=== PATIENT | male | born 1940 | race Caucasian/White ===

== ENCOUNTER 2022-05-09 18:33 | Inpatient (IN) ==
[2022-05-09] MEDS ORDERED: HEPARIN SODIUM IN D5W 25,000 UNITS/500 ML BAG IV PRN (20:15)
[2022-05-09] MEDS ORDERED: DILAUDID INJ IVP PRN (20:42)
[2022-05-09 20:58] LABS: BASOPHILS # (AUTO) 0.2 X10^3/uL (0.0-0.1); BASOPHILS % (AUTO) 2.6 % (0.2-1.0); EOSINOPHILS # (AUTO) 0.3 x10^3/uL (0.0-0.2); EOSINOPHILS % (AUTO) 5.1 % (0.9-2.9); HEMATOCRIT 31.4 % (42.0-54.0); HEMOGLOBIN 10.5 g/dL (13.5-18.0); LYMPHOCYTES # (AUTO) 1.7 X10^3/uL (1.3-2.9); LYMPHOCYTES % (AUTO) 25.4 % (21.0-51.0); MEAN CORPUSCULAR HEMOGLOBIN 28.6 pg (27.0-34.0); MEAN CORPUSCULAR HGB CONC 33.4 g/dL (33.0-35.0); MEAN CORPUSCULAR VOLUME 85.7 fL (80.0-100.0); MEAN PLATELET VOLUME 7.7 fL (7.4-11.0); MONOCYTES # (AUTO) 0.8 x10^3/uL (0.3-0.8); MONOCYTES % (AUTO) 11.6 % (0.0-13.0); NEUTROPHILS # (AUTO) 3.6 x10^3/uL (2.2-4.8); NEUTROPHILS % (AUTO) 55.3 % (42.0-75.0); RED BLOOD COUNT 3.67 X10^6/uL (4.7-6.0); RED CELL DISTRIBUTION WIDTH 14.8 % (11.6-16.5); WHITE BLOOD COUNT 6.6 X10^3/uL (3.6-10.0)
[2022-05-09] MEDS ORDERED: HEPARIN SODIUM INJ 5000 UNITS IVP ONE (21:01)
[2022-05-09 21:07] LABS: INR 1.18 (0.8-1.3)
[2022-05-09 21:12] LABS: ALANINE AMINOTRANSFERASE 22 Units/L (12-78); ALBUMIN 2.9 g/dL (3.4-5.0); ALKALINE PHOSPHATASE 90 Units/L (46-116); ASPARTATE AMINO TRANSFERASE 31 Units/L (15-37); BLOOD UREA NITROGEN 11 mg/dL (7-18); CALCIUM 8.2 mg/dL (8.5-10.1); CARBON DIOXIDE 27.4 mmol/L (21-32); CHLORIDE 104 mmol/L (98-107); COR CA(FOR HYPOALB) 9.1 mg/dL (8.5-10.1); CREATININE 0.95 mg/dL (0.70-1.30); SODIUM 139 mmol/L (136-145); TOTAL PROTEIN 6.3 g/dL (6.4-8.2); eGFR NON BLACK RACES > 60 (>60)
[2022-05-09] MEDS: CARDURA PO SCH (21:51)
[2022-05-09] MEDS: RESTORIL CAP 15 MG PO PRN (21:51)
[2022-05-09] MEDS: SINGULAIR TAB 10 MG PO SCH (21:51)
[2022-05-09] MEDS: LIPITOR TAB 80 MG PO SCH (22:08)
[2022-05-09] MEDS: ZETIA TAB 10 MG PO SCH (22:08)
[2022-05-09 22:58] VITALS: BMI 28.6
[2022-05-10] MEDS ORDERED: TOPROL XL PO ONE (08:22)
[2022-05-10] MEDS: PROTONIX TAB 40 MG PO SCH (08:23)
[2022-05-10] MEDS: TOPROL XL PO SCH (08:23)
[2022-05-10] MEDS: CARDURA PO SCH ×2 (08:23→20:09)
[2022-05-10] MEDS: ASPIRIN EC 81 MG PO SCH (08:23)
[2022-05-10] MEDS ORDERED: LIPITOR TAB 80 MG PO SCH (09:00)
[2022-05-10] MEDS ORDERED: ZETIA TAB 10 MG PO SCH (09:00)
[2022-05-10] MEDS ORDERED: ACTIVASE CATHFLO 12 MG in NS 250 ML IV 228 ML IV SCH (09:30)
[2022-05-10] MEDS ORDERED: NS 100 ML IV 100 ML ONE ×2 (10:06→11:11)
[2022-05-10] MEDS ORDERED: LR 1,000 ML IV 1,000 ML IV ONE (10:06)
[2022-05-10] MEDS ORDERED: NS 500 ML IV 500 ML IV ONE (10:06)
[2022-05-10] MEDS ORDERED: ANCEF VIAL 1 GRAM ONE (10:08)
[2022-05-10] MEDS ORDERED: HEPARIN SODIUM IN D5W 100,000 UNITS/2,000 ML BAG ONE (10:09)
[2022-05-10] MEDS ORDERED: ACTIVASE CATHFLO ONE (10:10)
--- NOTE | 2022-05-10 10:14 | RAD ---
HISTORYPRE-OP VASCULARSTUDYCHEST, 1 VIEWCOMPARISONNoneTECHNIQUEAP view of the chestFINDINGSStatus post median sternotomy and CABG. Cardiac silhouette is borderline in size. Mediastinal contours are within normal limits. There are bilateral hazy and interstitial pulmonary opacities. Blunting of the costophrenic sulci. No pneumothorax. Soft tissue attenuation limits evaluation.IMPRESSIONBilateral hazy and interstitial pulmonary opacities may represent pneumonia or edema in the acute setting. Differential includes chronic fibrosis. Suspect small pleural effusions.Electronically signed by: Dev Shaw (May 10, 2022 10:12:20)
[2022-05-10] MEDS ORDERED: MARCAINE/EPINEPHRINE ONE (10:20)
[2022-05-10] MEDS ORDERED: DUONEB 0.5 MG/3 MG (3 mL) NEB ONE (10:30)
[2022-05-10] MEDS ORDERED: DIPRIVAN VIAL 40 ML ONE (10:31)
[2022-05-10] MEDS ORDERED: ZOFRAN INJ 4 MG VIAL ONE (10:31)
[2022-05-10] MEDS ORDERED: PEPCID 20 MG VIAL ONE (10:31)
[2022-05-10] MEDS ORDERED: VERSED ONE (10:32)
[2022-05-10] MEDS ORDERED: FENTANYL VIAL INJ 100 mcg ONE (10:32)
[2022-05-10] MEDS ORDERED: XYLOCAINE 2 % (PLAIN) ONE (10:37)
[2022-05-10] MEDS ORDERED: PRECEDEX INJ VIAL IVP ONE (10:42)
[2022-05-10] MEDS ORDERED: KETAMINE HCL ONE (10:42)
[2022-05-10] MEDS ORDERED: EPHEDRINE SULFATE INJ ONE (11:06)
[2022-05-10] MEDS ORDERED: NEO-SYNEPHRINE INJ ONE (11:06)
[2022-05-10] MEDS ORDERED: HEPARIN SODIUM INJ 5000 UNITS ONE (11:17)
[2022-05-10] MEDS ORDERED: LASIX IVP ONE (11:33)
--- NOTE | 2022-05-10 13:18 | OR.IMMED ---
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 Final Diagnosis: as above
[2022-05-10] MEDS ORDERED: XARELTO PO ONE (13:28)
[2022-05-10] MEDS: XARELTO PO SCH ×2 (13:29→20:08)
[2022-05-10] MEDS: RESTORIL CAP 15 MG PO PRN (20:07)
[2022-05-10] MEDS: LIPITOR TAB 80 MG PO SCH (20:08)
[2022-05-10] MEDS: ZETIA TAB 10 MG PO SCH (20:09)
[2022-05-10] MEDS: SINGULAIR TAB 10 MG PO SCH (20:10)
--- NOTE | 2022-05-10 21:21 | DR.OPNOTE ---
OP NOTE Pre-Op Diagnosis: DVT of left femoral vein Post-Op Diagnosis: occlusion of left common femoral vein Procedure Date Date Of Procedure: 05/10/22 Procedure: PROCEDURE : Left iliac vein venogram, left femoral vein venogram , intravascular ultrasound of the left femoral vein and left iliac vein, stenting of the left common femoral vein near total occlusion NARRATIVE : The patient was taken to the operative suite and placed in the right lateral position. The left popliteal area was prepped and draped in sterile fashion. The patient was given intravenous sedation which was supervised by myself. Time out for the procedure obtained . Ultrasound used to identify the left popliteal vein and it was easily compressible. The skin overlying it was infiltrated with a 0. 5% Marcaine with epinephrine. Ultrasound was used to guide puncture of the left femoral vein and a 0. 012 inch guide wire placed without difficulty. Incision made over the guide wire with a number 11 knife blade and a micro sheath placed over the wire into the left femoral vein. The small wire exchanged for a 0. 035 inch Advantage glide wire and the micro sheath exchanged for a 9 Fr vascular sheath . Patient was administered 3,000 units of intravenous Heparin. Venogram carried out showing a normal femoral vein. At the common femoral vein just below the previously placed stents there was near complete total occlusion but with filling of the iliac vein and in side the stent. At this point the intravascular ultrasound was placed over the 0. 035 inch glide wire which had been used to traverse the near total occlusion. Intravascular ultrasound confirmed the near complete occlusion of the common femoral vein with no evidence of thrombosis. The 9 Fr sheath was exchanged for a 10 Fr vascular sheath .Over the wire weplaced a 16 mm by 90 mm Venous Wall stent with overlap into the distal most external iliac vein stent and this balloon dilated with a 16 mm by 60 mm esophageal balloon. Dilation was difficult but was carried out. Repeat intravascular ultrasound showed resolution of the near complete and again no thrombosis. Wire was removed from the popliteal sheath. The sheath left in place and the patient taken back to the ICU. Type of Anesthesia: Local (0.5% Marcaine) Anesthesia Comment: plus MAC Findings: occlusion of left femoral vein probably at site of venotomy and removal of foreign body Specimen/Pathology: none Type of Fluids Used:: Lactated Ringers Urine output: 300cc Hardware: stent placed left common femoral vein Complications:: none Needle/Sponge Count:: correct Disposition/Condition: Pt. tolerated procedure without difficulty. Taken back to the ICU in stable condition.
[2022-05-11 05:39] LABS: BASOPHILS # (AUTO) 0.1 X10^3/uL (0.0-0.1); BASOPHILS % (AUTO) 1.3 % (0.2-1.0); EOSINOPHILS # (AUTO) 0.2 x10^3/uL (0.0-0.2); EOSINOPHILS % (AUTO) 4.1 % (0.9-2.9); HEMATOCRIT 26.4 % (42.0-54.0); LYMPHOCYTES # (AUTO) 1.4 X10^3/uL (1.3-2.9); LYMPHOCYTES % (AUTO) 22.6 % (21.0-51.0); MEAN CORPUSCULAR HEMOGLOBIN 28.8 pg (27.0-34.0); MEAN CORPUSCULAR HGB CONC 33.9 g/dL (33.0-35.0); MEAN CORPUSCULAR VOLUME 84.8 fL (80.0-100.0); MEAN PLATELET VOLUME 7.7 fL (7.4-11.0); MONOCYTES % (AUTO) 16.4 % (0.0-13.0); NEUTROPHILS # (AUTO) 3.4 x10^3/uL (2.2-4.8); NEUTROPHILS % (AUTO) 55.6 % (42.0-75.0); RED BLOOD COUNT 3.11 X10^6/uL (4.7-6.0); RED CELL DISTRIBUTION WIDTH 14.9 % (11.6-16.5); WHITE BLOOD COUNT 6.1 X10^3/uL (3.6-10.0)
[2022-05-11 05:51] LABS: ALANINE AMINOTRANSFERASE 15 Units/L (12-78); ALBUMIN 2.2 g/dL (3.4-5.0); ALKALINE PHOSPHATASE 79 Units/L (46-116); ASPARTATE AMINO TRANSFERASE 24 Units/L (15-37); BLOOD UREA NITROGEN 9 mg/dL (7-18); CALCIUM 7.5 mg/dL (8.5-10.1); CARBON DIOXIDE 30.2 mmol/L (21-32); CHLORIDE 103 mmol/L (98-107); COR CA(FOR HYPOALB) 8.9 mg/dL (8.5-10.1); COR NA(FOR HYPERGLY) 137 mmol/L (136-145); CREATININE 0.89 mg/dL (0.70-1.30); SODIUM 136 mmol/L (136-145); TOTAL PROTEIN 5.3 g/dL (6.4-8.2); eGFR NON BLACK RACES > 60 (>60)
[2022-05-11] MEDS ORDERED: TOPROL XL PO ONE (09:08)
[2022-05-11] MEDS: CARDURA PO SCH (09:11)
[2022-05-11] MEDS: XARELTO PO SCH (09:11)
[2022-05-11] MEDS: TOPROL XL PO SCH (09:12)
[2022-05-11] MEDS: ASPIRIN EC 81 MG PO SCH (09:12)
[2022-05-11] MEDS: PROTONIX TAB 40 MG PO SCH (09:12)
--- NOTE | 2022-05-11 10:06 | W.DIS.FURT ---
Summary of Discharge Discharge Summary of Date Date of Exam: 05/11/22 Admission Date Date of Admission: 05/09/22 Admission Diagnosis Hospital Course: 81 year old male who presented to my office with significant increased swelling of the upper left thigh after having had stenting of the left iliac vein by another provider several weeks prior. 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 Patient was admitted and placed on a Heparin drip. Previously he had been on Plavix and aspirin. The next morning he was taken to the operating Suite where venogram was carried out by of the left Popliteal vein showing no thrombosis of the femoral vein or the iliac vein however there was near total occlusion of the proximal common femoral vein, probably from venotomy at the time of the procedure to remove a foreign body. This was stented with overlap into the previously placed iliac vein stents of the left leg and the patient has done well. He will be discharged home on his usual medications plus Xarelto 2. 5 mg BID and daily aspirin 87. I will discontinue the Plavix. He will follow up with me in one week. Vital Signs: Vital Signs (72 hours) 05/09/22 19:45 05/09/22 20:00 05/09/22 19:40 Temperature 97.6 F 97.6 F Pulse Rate 57 L 61 Respiratory Rate 30 H 27 H Blood Pressure 177/74 172/73 O2 Sat by Pulse Oximetry 96 100 Oxygen Delivery Method Room Air Room Air Room Air Oxygen Flow Rate FIO2% 05/09/22 21:00 05/09/22 22:00 05/09/22 23:00 Temperature Pulse Rate 68 75 68 Respiratory Rate 27 H 30 H 29 H Blood Pressure 169/68 161/67 125/58 O2 Sat by Pulse Oximetry 97 95 98 Oxygen Delivery Method Room Air Room Air Nasal Cannula Oxygen Flow Rate 2 FIO2% 05/10/22 00:00 05/10/22 01:00 05/10/22 02:00 Temperature 97.6 F Pulse Rate 59 L 58 L 61 Respiratory Rate 29 H 28 H 27 H Blood Pressure 117/53 120/58 130/57 O2 Sat by Pulse Oximetry 93 L 92 L 95 Oxygen Delivery Method Nasal Cannula Nasal Cannula Nasal Cannula Oxygen Flow Rate 2 2 2 FIO2% 05/10/22 03:00 05/09/22 21:00 05/10/22 01:00 Temperature Pulse Rate 64 Respiratory Rate 24 Blood Pressure 115/61 O2 Sat by Pulse Oximetry 98 Oxygen Delivery Method Nasal Cannula Room Air Nasal Cannula Oxygen Flow Rate 2 2 FIO2% 28 05/10/22 04:00 05/10/22 05:00 05/10/22 06:00 Temperature 97.7 F Pulse Rate 57 L 57 L 61 Respiratory Rate 27 H 23 29 H Blood Pressure 103/50 120/56 151/63 O2 Sat by Pulse Oximetry 93 L 92 L 95 Oxygen Delivery Method Nasal Cannula Nasal Cannula Nasal Cannula Oxygen Flow Rate 2 2 2 FIO2% 05/10/22 06:53 05/09/22 19:47 05/09/22 19:55 Temperature Pulse Rate 61 Respiratory Rate 34 H Blood Pressure 189/82 O2 Sat by Pulse Oximetry Oxygen Delivery Method Room Air Oxygen Flow Rate FIO2% 05/09/22 19:55 05/09/22 19:58 05/09/22 19:58 Temperature Pulse Rate 59 L 54 L Respiratory Rate 36 H 31 H Blood Pressure 177/74 O2 Sat by Pulse Oximetry 97 96 Oxygen Delivery Method Oxygen Flow Rate FIO2% 05/09/22 20:00 05/09/22 20:00 05/09/22 20:15 Temperature Pulse Rate 74 63 Respiratory Rate 55 H 39 H Blood Pressure 172/73 O2 Sat by Pulse Oximetry 96 99 Oxygen Delivery Method Oxygen Flow Rate FIO2% 05/09/22 20:30 05/09/22 20:31 05/09/22 20:31 Temperature Pulse Rate 68 69 Respiratory Rate 22 44 H Blood Pressure 183/79 O2 Sat by Pulse Oximetry 97 97 Oxygen Delivery Method Oxygen Flow Rate FIO2% 05/09/22 20:45 05/09/22 21:00 05/09/22 21:01 Temperature Pulse Rate 69 69 Respiratory Rate 30 H 34 H Blood Pressure 169/68 O2 Sat by Pulse Oximetry 94 L 92 L Oxygen Delivery Method Oxygen Flow Rate FIO2% 05/09/22 21:01 05/09/22 21:15 05/09/22 21:30 Temperature Pulse Rate 70 71 74 Respiratory Rate 36 H 37 H 37 H Blood Pressure O2 Sat by Pulse Oximetry 92 L 94 L 93 L Oxygen Delivery Method Oxygen Flow Rate FIO2% 05/09/22 21:31 05/09/22 21:31 05/09/22 21:45 Temperature Pulse Rate 68 70 Respiratory Rate 29 H 36 H Blood Pressure 148/65 O2 Sat by Pulse Oximetry 93 L 94 L Oxygen Delivery Method Oxygen Flow Rate FIO2% 05/09/22 22:00 05/09/22 22:00 05/09/22 22:15 Temperature Pulse Rate 77 66 Respiratory Rate 29 H 32 H Blood Pressure 161/67 O2 Sat by Pulse Oximetry 91 L 94 L Oxygen Delivery Method Oxygen Flow Rate FIO2% 05/09/22 22:30 05/09/22 22:45 05/09/22 23:00 Temperature Pulse Rate 62 65 59 L Respiratory Rate 32 H 26 H 28 H Blood Pressure O2 Sat by Pulse Oximetry 95 96 95 Oxygen Delivery Method Oxygen Flow Rate FIO2% 05/09/22 23:01 05/09/22 23:01 05/09/22 23:15 Temperature Pulse Rate 63 58 L Respiratory Rate 30 H 28 H Blood Pressure 125/58 O2 Sat by Pulse Oximetry 96 98 Oxygen Delivery Method Oxygen Flow Rate FIO2% 05/09/22 23:30 05/09/22 23:45 05/10/22 00:00 Temperature Pulse Rate 58 L 62 61 Respiratory Rate 25 H 28 H 29 H Blood Pressure O2 Sat by Pulse Oximetry 97 94 L 94 L Oxygen Delivery Method Oxygen Flow Rate FIO2% 05/10/22 00:01 05/10/22 00:01 05/10/22 00:15 Temperature Pulse Rate 60 63 Respiratory Rate 31 H 27 H Blood Pressure 117/53 O2 Sat by Pulse Oximetry 92 L 96 Oxygen Delivery Method Oxygen Flow Rate FIO2% 05/10/22 00:30 05/10/22 00:45 05/10/22 01:00 Temperature Pulse Rate 60 59 L Respiratory Rate 28 H 30 H Blood Pressure 120/58 O2 Sat by Pulse Oximetry 92 L 97 Oxygen Delivery Method Oxygen Flow Rate FIO2% 05/10/22 01:00 05/10/22 01:15 05/10/22 01:30 Temperature Pulse Rate 57 L 65 57 L Respiratory Rate 24 33 H 26 H Blood Pressure O2 Sat by Pulse Oximetry 94 L 95 91 L Oxygen Delivery Method Oxygen Flow Rate FIO2% 05/10/22 01:45 05/10/22 07:00 05/10/22 08:00 Temperature 98.1 F Pulse Rate 56 L 60 58 L Respiratory Rate 26 H 25 H 25 H Blood Pressure 129/60 149/69 O2 Sat by Pulse Oximetry 92 L 93 L 90 L Oxygen Delivery Method Nasal Cannula Nasal Cannula Oxygen Flow Rate 2 2 FIO2% 05/10/22 02:00 05/10/22 02:01 05/10/22 02:01 Temperature Pulse Rate 59 L 60 Respiratory Rate 26 H 29 H Blood Pressure 130/57 O2 Sat by Pulse Oximetry 93 L 94 L Oxygen Delivery Method Oxygen Flow Rate FIO2% 05/10/22 02:15 05/10/22 02:30 05/10/22 02:45 Temperature Pulse Rate 63 61 63 Respiratory Rate 32 H 32 H 14 Blood Pressure O2 Sat by Pulse Oximetry 95 94 L 99 Oxygen Delivery Method Oxygen Flow Rate FIO2% 05/10/22 03:01 05/10/22 03:03 05/10/22 03:03 Temperature Pulse Rate 62 62 Respiratory Rate 32 H 41 H Blood Pressure 115/61 O2 Sat by Pulse Oximetry 98 96 Oxygen Delivery Method Oxygen Flow Rate FIO2% 05/10/22 03:15 05/10/22 03:30 05/10/22 03:45 Temperature Pulse Rate 63 60 58 L Respiratory Rate 30 H 30 H 29 H Blood Pressure O2 Sat by Pulse Oximetry 92 L 93 L 95 Oxygen Delivery Method Oxygen Flow Rate FIO2% 05/10/22 04:00 05/10/22 04:01 05/10/22 04:01 Temperature Pulse Rate 60 60 Respiratory Rate 29 H 29 H Blood Pressure 103/50 O2 Sat by Pulse Oximetry 93 L 93 L Oxygen Delivery Method Oxygen Flow Rate FIO2% 05/10/22 04:15 05/10/22 04:31 05/10/22 04:45 Temperature Pulse Rate 59 L 59 L 59 L Respiratory Rate 26 H 27 H 25 H Blood Pressure O2 Sat by Pulse Oximetry 98 94 L 93 L Oxygen Delivery Method Oxygen Flow Rate FIO2% 05/10/22 04:59 05/10/22 05:00 05/10/22 05:02 Temperature Pulse Rate 58 L 57 L Respiratory Rate 23 25 H Blood Pressure 120/56 O2 Sat by Pulse Oximetry 93 L 92 L Oxygen Delivery Method Oxygen Flow Rate FIO2% 05/10/22 05:15 05/10/22 05:30 05/10/22 05:45 Temperature Pulse Rate 59 L 72 62 Respiratory Rate 26 H 39 H 29 H Blood Pressure O2 Sat by Pulse Oximetry 92 L 94 L 95 Oxygen Delivery Method Oxygen Flow Rate FIO2% 05/10/22 06:00 05/10/22 06:01 05/10/22 06:01 Temperature Pulse Rate 61 61 Respiratory Rate 28 H 29 H Blood Pressure 151/63 O2 Sat by Pulse Oximetry 93 L 92 L Oxygen Delivery Method Oxygen Flow Rate FIO2% 05/10/22 06:01 05/10/22 06:15 05/10/22 06:30 Temperature Pulse Rate 59 L 57 L Respiratory Rate 27 H 25 H Blood Pressure 151/63 O2 Sat by Pulse Oximetry 93 L 91 L Oxygen Delivery Method Oxygen Flow Rate FIO2% 05/10/22 06:45 05/10/22 07:00 05/10/22 07:01 Temperature Pulse Rate 58 L 59 L Respiratory Rate 24 26 H Blood Pressure 129/60 O2 Sat by Pulse Oximetry 93 L 90 L Oxygen Delivery Method Oxygen Flow Rate FIO2% 05/10/22 07:01 05/10/22 07:15 05/10/22 07:30 Temperature Pulse Rate 60 66 58 L Respiratory Rate 25 H 38 H 24 Blood Pressure O2 Sat by Pulse Oximetry 93 L 96 92 L Oxygen Delivery Method Oxygen Flow Rate FIO2% 05/10/22 07:45 05/10/22 08:00 05/10/22 08:00 Temperature Pulse Rate 58 L 58 L Respiratory Rate 25 H 25 H Blood Pressure 149/69 O2 Sat by Pulse Oximetry 93 L 90 L Oxygen Delivery Method Oxygen Flow Rate FIO2% 05/10/22 08:15 05/10/22 08:30 05/10/22 08:45 Temperature Pulse Rate 58 L 68 60 Respiratory Rate 26 H 41 H 26 H Blood Pressure O2 Sat by Pulse Oximetry 91 L 94 L 97 Oxygen Delivery Method Oxygen Flow Rate FIO2% 05/10/22 09:00 05/10/22 09:00 05/10/22 09:15 Temperature Pulse Rate 63 59 L Respiratory Rate 30 H 24 Blood Pressure 161/72 O2 Sat by Pulse Oximetry 96 99 Oxygen Delivery Method Oxygen Flow Rate FIO2% 05/10/22 09:30 05/10/22 09:35 05/10/22 12:05 Temperature Pulse Rate 63 61 Respiratory Rate 31 H 27 H Blood Pressure 111/57 O2 Sat by Pulse Oximetry 94 L 95 Oxygen Delivery Method Oxygen Flow Rate FIO2% 05/10/22 12:08 05/10/22 12:10 05/10/22 12:10 Temperature Pulse Rate 59 L 58 L Respiratory Rate Blood Pressure 109/53 O2 Sat by Pulse Oximetry 93 L 92 L Oxygen Delivery Method Oxygen Flow Rate FIO2% 05/10/22 12:15 05/10/22 12:15 05/10/22 12:20 Temperature Pulse Rate 57 L 55 L Respiratory Rate 23 22 Blood Pressure 105/53 O2 Sat by Pulse Oximetry 91 L 91 L Oxygen Delivery Method Oxygen Flow Rate FIO2% 05/10/22 12:20 05/10/22 12:25 05/10/22 12:25 Temperature Pulse Rate 55 L Respiratory Rate 19 Blood Pressure 103/53 105/54 O2 Sat by Pulse Oximetry 91 L Oxygen Delivery Method Oxygen Flow Rate FIO2% 05/10/22 12:30 05/10/22 12:30 05/10/22 12:35 Temperature Pulse Rate 54 L 57 L Respiratory Rate 19 20 Blood Pressure 109/54 O2 Sat by Pulse Oximetry 91 L 95 Oxygen Delivery Method Oxygen Flow Rate FIO2% 05/10/22 12:35 05/10/22 12:40 05/10/22 12:40 Temperature Pulse Rate 53 L Respiratory Rate 18 Blood Pressure 107/55 114/56 O2 Sat by Pulse Oximetry 96 Oxygen Delivery Method Oxygen Flow Rate FIO2% 05/10/22 12:45 05/10/22 12:45 05/10/22 12:50 Temperature Pulse Rate 51 L Respiratory Rate 22 Blood Pressure 110/55 110/57 O2 Sat by Pulse Oximetry 94 L Oxygen Delivery Method Oxygen Flow Rate FIO2% 05/10/22 12:50 05/10/22 12:55 05/10/22 12:55 Temperature Pulse Rate 53 L 52 L Respiratory Rate 20 18 Blood Pressure 115/58 O2 Sat by Pulse Oximetry 95 94 L Oxygen Delivery Method Oxygen Flow Rate FIO2% 05/10/22 13:00 05/10/22 13:00 05/10/22 13:05 Temperature Pulse Rate 55 L Respiratory Rate 22 Blood Pressure 114/57 116/58 O2 Sat by Pulse Oximetry 94 L Oxygen Delivery Method Oxygen Flow Rate FIO2% 05/10/22 13:05 05/10/22 13:10 05/10/22 13:10 Temperature Pulse Rate 52 L 53 L Respiratory Rate 20 19 Blood Pressure 112/54 O2 Sat by Pulse Oximetry 94 L 96 Oxygen Delivery Method Oxygen Flow Rate FIO2% 05/10/22 13:15 05/10/22 13:15 05/10/22 13:20 Temperature Pulse Rate 57 L Respiratory Rate 21 Blood Pressure 114/56 112/54 O2 Sat by Pulse Oximetry 96 Oxygen Delivery Method Oxygen Flow Rate FIO2% 05/10/22 13:20 05/10/22 13:25 05/10/22 13:25 Temperature Pulse Rate 55 L 53 L Respiratory Rate 22 18 Blood Pressure 117/55 O2 Sat by Pulse Oximetry 95 94 L Oxygen Delivery Method Oxygen Flow Rate FIO2% 05/10/22 13:30 05/10/22 13:30 05/10/22 13:35 Temperature Pulse Rate 52 L Respiratory Rate 18 Blood Pressure 113/57 125/58 O2 Sat by Pulse Oximetry 95 Oxygen Delivery Method Oxygen Flow Rate FIO2% 05/10/22 13:35 05/10/22 15:00 05/10/22 13:45 Temperature 98.2 F 98.2 F Pulse Rate 52 L 56 L Respiratory Rate 19 33 H Blood Pressure O2 Sat by Pulse Oximetry 95 96 Oxygen Delivery Method Oxygen Flow Rate FIO2% 05/10/22 14:00 05/10/22 14:00 05/10/22 14:15 Temperature Pulse Rate 54 L 54 L Respiratory Rate 29 H 29 H Blood Pressure 122/58 O2 Sat by Pulse Oximetry 99 100 Oxygen Delivery Method Oxygen Flow Rate FIO2% 05/10/22 14:30 05/10/22 14:31 05/10/22 14:31 Temperature Pulse Rate 55 L 54 L Respiratory Rate 44 H 30 H Blood Pressure 119/58 O2 Sat by Pulse Oximetry 100 99 Oxygen Delivery Method Oxygen Flow Rate FIO2% 05/10/22 14:45 05/10/22 15:00 05/10/22 15:00 Temperature Pulse Rate 57 L 55 L Respiratory Rate 27 H 21 Blood Pressure 108/75 O2 Sat by Pulse Oximetry 95 99 Oxygen Delivery Method Oxygen Flow Rate FIO2% 05/10/22 15:15 05/10/22 15:30 05/10/22 15:30 Temperature Pulse Rate 50 L 58 L Respiratory Rate 37 H 30 H Blood Pressure 118/58 O2 Sat by Pulse Oximetry 99 96 Oxygen Delivery Method Oxygen Flow Rate FIO2% 05/10/22 15:45 05/10/22 16:00 05/10/22 16:15 Temperature Pulse Rate 58 L 60 57 L Respiratory Rate 42 H 46 H 33 H Blood Pressure O2 Sat by Pulse Oximetry 99 98 100 Oxygen Delivery Method Oxygen Flow Rate FIO2% 05/10/22 16:30 05/10/22 16:30 05/10/22 16:45 Temperature 97.4 F L Pulse Rate 56 L 61 Respiratory Rate 24 36 H Blood Pressure 120/58 O2 Sat by Pulse Oximetry 100 98 Oxygen Delivery Method Oxygen Flow Rate FIO2% 05/10/22 17:00 05/10/22 17:01 05/10/22 17:01 Temperature Pulse Rate 58 L 57 L Respiratory Rate 26 H 30 H Blood Pressure 144/63 O2 Sat by Pulse Oximetry 98 97 Oxygen Delivery Method Oxygen Flow Rate FIO2% 05/10/22 17:15 05/10/22 17:30 05/10/22 17:45 Temperature Pulse Rate 56 L 57 L 56 L Respiratory Rate 33 H 27 H 33 H Blood Pressure O2 Sat by Pulse Oximetry 98 95 100 Oxygen Delivery Method Oxygen Flow Rate FIO2% 05/10/22 18:00 05/10/22 18:01 05/10/22 18:01 Temperature Pulse Rate 56 L 58 L Respiratory Rate 35 H 36 H Blood Pressure 161/70 O2 Sat by Pulse Oximetry 98 96 Oxygen Delivery Method Oxygen Flow Rate FIO2% 05/10/22 19:00 05/10/22 19:00 05/10/22 20:00 Temperature 97.8 F Pulse Rate 57 L 66 Respiratory Rate 25 H 24 Blood Pressure 125/56 153/67 O2 Sat by Pulse Oximetry 100 95 Oxygen Delivery Method Nasal Cannula Oxygen Flow Rate 2 FIO2% 05/10/22 22:00 05/10/22 20:15 05/10/22 21:00 Temperature Pulse Rate 64 61 Respiratory Rate 27 H 28 H Blood Pressure 131/59 129/58 O2 Sat by Pulse Oximetry 97 95 Oxygen Delivery Method Nasal Cannula Oxygen Flow Rate 2 FIO2% 28 05/10/22 23:00 05/11/22 00:00 05/11/22 01:00 Temperature 98.6 F Pulse Rate 65 66 72 Respiratory Rate 23 26 H 25 H Blood Pressure 107/54 129/60 122/58 O2 Sat by Pulse Oximetry 99 97 94 L Oxygen Delivery Method Oxygen Flow Rate FIO2% 05/11/22 02:00 05/11/22 03:00 05/11/22 04:00 Temperature 98.7 F Pulse Rate 63 60 65 Respiratory Rate 27 H 24 24 Blood Pressure 119/56 109/51 120/57 O2 Sat by Pulse Oximetry 95 97 96 Oxygen Delivery Method Oxygen Flow Rate FIO2% 05/11/22 05:00 05/11/22 06:00 05/10/22 22:30 Temperature Pulse Rate 60 64 67 Respiratory Rate 26 H 17 34 H Blood Pressure 114/58 111/54 O2 Sat by Pulse Oximetry 91 L 98 92 L Oxygen Delivery Method Oxygen Flow Rate FIO2% 05/10/22 22:45 05/10/22 23:00 05/10/22 23:03 Temperature Pulse Rate 66 68 Respiratory Rate 33 H 38 H Blood Pressure 107/54 O2 Sat by Pulse Oximetry 90 L 92 L Oxygen Delivery Method Oxygen Flow Rate FIO2% 05/10/22 23:03 05/10/22 23:15 05/10/22 23:30 Temperature Pulse Rate 66 68 60 Respiratory Rate 31 H 37 H 26 H Blood Pressure O2 Sat by Pulse Oximetry 90 L 95 91 L Oxygen Delivery Method Oxygen Flow Rate FIO2% 05/10/22 23:45 05/11/22 00:00 05/11/22 00:01 Temperature Pulse Rate 58 L 64 66 Respiratory Rate 26 H 29 H 32 H Blood Pressure O2 Sat by Pulse Oximetry 98 99 98 Oxygen Delivery Method Oxygen Flow Rate FIO2% 05/11/22 00:01 05/11/22 00:15 05/11/22 00:30 Temperature Pulse Rate 66 62 Respiratory Rate 31 H 29 H Blood Pressure 129/60 O2 Sat by Pulse Oximetry 95 92 L Oxygen Delivery Method Oxygen Flow Rate FIO2% 05/11/22 00:45 05/11/22 01:00 05/11/22 01:00 Temperature Pulse Rate 59 L 61 Respiratory Rate 26 H 27 H Blood Pressure 122/58 O2 Sat by Pulse Oximetry 90 L 91 L Oxygen Delivery Method Oxygen Flow Rate FIO2% 05/11/22 01:15 05/11/22 01:30 05/11/22 01:45 Temperature Pulse Rate 61 67 63 Respiratory Rate 28 H 38 H 36 H Blood Pressure O2 Sat by Pulse Oximetry 90 L 90 L 93 L Oxygen Delivery Method Oxygen Flow Rate FIO2% 05/11/22 02:00 05/11/22 02:00 05/11/22 02:15 Temperature Pulse Rate 63 65 Respiratory Rate 30 H 28 H Blood Pressure 119/56 O2 Sat by Pulse Oximetry 96 98 Oxygen Delivery Method Oxygen Flow Rate FIO2% 05/11/22 02:30 05/11/22 02:45 05/11/22 03:00 Temperature Pulse Rate 63 67 Respiratory Rate 29 H 29 H Blood Pressure 109/51 O2 Sat by Pulse Oximetry 93 L 94 L Oxygen Delivery Method Oxygen Flow Rate FIO2% 05/11/22 03:00 05/11/22 03:15 05/11/22 03:30 Temperature Pulse Rate 66 63 61 Respiratory Rate 27 H 27 H 25 H Blood Pressure O2 Sat by Pulse Oximetry 92 L 90 L 91 L Oxygen Delivery Method Oxygen Flow Rate FIO2% 05/11/22 03:45 05/11/22 04:00 05/11/22 04:00 Temperature Pulse Rate 62 67 Respiratory Rate 25 H 28 H Blood Pressure 120/57 O2 Sat by Pulse Oximetry 90 L 95 Oxygen Delivery Method Oxygen Flow Rate FIO2% 05/11/22 04:15 05/11/22 04:30 05/11/22 04:45 Temperature Pulse Rate 69 63 62 Respiratory Rate 32 H 31 H 28 H Blood Pressure O2 Sat by Pulse Oximetry 94 L 96 92 L Oxygen Delivery Method Oxygen Flow Rate FIO2% 05/11/22 05:00 05/11/22 05:00 05/11/22 05:15 Temperature Pulse Rate 62 64 Respiratory Rate 50 H 35 H Blood Pressure 114/58 O2 Sat by Pulse Oximetry 92 L 94 L Oxygen Delivery Method Oxygen Flow Rate FIO2% 05/11/22 05:30 05/11/22 05:45 05/11/22 06:00 Temperature Pulse Rate 62 67 Respiratory Rate 29 H 32 H Blood Pressure 111/55 O2 Sat by Pulse Oximetry 94 L 99 Oxygen Delivery Method Oxygen Flow Rate FIO2% 05/11/22 06:00 05/11/22 06:15 05/11/22 06:30 Temperature Pulse Rate 61 60 61 Respiratory Rate 24 Blood Pressure O2 Sat by Pulse Oximetry 92 L 95 93 L Oxygen Delivery Method Oxygen Flow Rate FIO2% 05/11/22 06:45 05/11/22 07:00 05/11/22 07:00 Temperature Pulse Rate 66 60 Respiratory Rate Blood Pressure 116/58 O2 Sat by Pulse Oximetry 94 L 93 L Oxygen Delivery Method Oxygen Flow Rate FIO2% 05/11/22 07:15 05/11/22 07:30 05/11/22 07:45 Temperature Pulse Rate 57 L 59 L 62 Respiratory Rate Blood Pressure O2 Sat by Pulse Oximetry 96 96 97 Oxygen Delivery Method Oxygen Flow Rate FIO2% 05/11/22 08:00 05/11/22 08:15 05/11/22 08:30 Temperature Pulse Rate 71 66 67 Respiratory Rate Blood Pressure O2 Sat by Pulse Oximetry 94 L 97 96 Oxygen Delivery Method Oxygen Flow Rate FIO2% 05/11/22 08:45 05/11/22 09:00 05/11/22 09:00 Temperature Pulse Rate 70 65 Respiratory Rate Blood Pressure 122/58 O2 Sat by Pulse Oximetry 95 93 L Oxygen Delivery Method Oxygen Flow Rate FIO2% 05/11/22 09:15 05/11/22 09:30 05/11/22 08:55 Temperature Pulse Rate 69 66 Respiratory Rate Blood Pressure O2 Sat by Pulse Oximetry 93 L 98 Oxygen Delivery Method Nasal Cannula Oxygen Flow Rate 2 FIO2% 28 Labs: Laboratory Last Values WBC 6.1 X10^3/uL (3.6-10.0) 05/11/22 05:20 RBC 3.11 X10^6/uL (4.7-6.0) L 05/11/22 05:20 Hgb 9.0 g/dL (13.5-18.0) L 05/11/22 05:20 Hct 26.4 % (42.0-54.0) L 05/11/22 05:20 MCV 84.8 fL (80.0-100.0) 05/11/22 05:20 MCH 28.8 pg (27.0-34.0) 05/11/22 05:20 MCHC 33.9 g/dL (33.0-35.0) 05/11/22 05:20 RDW 14.9 % (11.6-16.5) 05/11/22 05:20 Plt Count 274 X10^3/uL (150.0-450.0) 05/11/22 05:20 MPV 7.7 fL (7.4-11.0) 05/11/22 05:20 Neut % (Auto) 55.6 % (42.0-75.0) 05/11/22 05:20 Lymph % (Auto) 22.6 % (21.0-51.0) 05/11/22 05:20 Worth % (Auto) 16.4 % (0.0-13.0) H 05/11/22 05:20 Eos % (Auto) 4.1 % (0.9-2.9) H 05/11/22 05:20 Baso % (Auto) 1.3 % (0.2-1.0) H 05/11/22 05:20 Neut # (Auto) 3.4 x10^3/uL (2.2-4.8) 05/11/22 05:20 Lymph # (Auto) 1.4 X10^3/uL (1.3-2.9) 05/11/22 05:20 Worth # (Auto) 1.0 x10^3/uL (0.3-0.8) H 05/11/22 05:20 Eos # (Auto) 0.2 x10^3/uL (0.0-0.2) 05/11/22 05:20 Baso # (Auto) 0.1 X10^3/uL (0.0-0.1) 05/11/22 05:20 Absolute Nucleated RBC 0.0 /100WBC 05/11/22 05:20 PT 14.6 SECONDS (11.8-14.3) 05/09/22 20:36 INR Target Range - 05/09/22 20:36 INR 1.18 (0.8-1.3) 05/09/22 20:36 APTT 249.0 SECONDS (22.9-36.5) H* 05/10/22 13:01 PTT Comment - 05/10/22 13:01 Sodium 136 mmol/L (136-145) 05/11/22 05:20 Corrected Sodium 137 mmol/L (136-145) 05/11/22 05:20 Potassium 4.0 mmol/L (3.5-5.1) 05/11/22 05:20 Chloride 103 mmol/L (98-107) 05/11/22 05:20 Carbon Dioxide 30.2 mmol/L (21-32) 05/11/22 05:20 BUN 9 mg/dL (7-18) 05/11/22 05:20 Creatinine 0.89 mg/dL (0.70-1.30) 05/11/22 05:20 Est GFR (MDRD) Af Amer > 60 (>60) 05/11/22 05:20 Est GFR (MDRD) Non-Af > 60 (>60) 05/11/22 05:20 Glucose 130 mg/dL (65-99) H 05/11/22 05:20 Calcium 7.5 mg/dL (8.5-10.1) L 05/11/22 05:20 Corrected Calcium 8.9 mg/dL (8.5-10.1) 05/11/22 05:20 Total Bilirubin 0.30 mg/dL (0.2-1.0) 05/11/22 05:20 AST 24 Units/L (15-37) 05/11/22 05:20 ALT 15 Units/L (12-78) 05/11/22 05:20 Alkaline Phosphatase 79 Units/L (46-116) 05/11/22 05:20 Total Protein 5.3 g/dL (6.4-8.2) L 05/11/22 05:20 Albumin 2.2 g/dL (3.4-5.0) L 05/11/22 05:20 Globulin 3.1 g/dL (2.5-4.5) 05/11/22 05:20 Albumin/Globulin Ratio 0.7 Ratio (1.1-2.1) L 05/11/22 05:20 SARS-CoV-2 (PCR) Negative (NEGATIVE) 05/09/22 22:50 Influenza Type A (PCR) Negative (NEGATIVE) 05/09/22 22:50 Influenza Type B (PCR) Negative (NEGATIVE) 05/09/22 22:50 RSV (PCR) Negative (NEGATIVE) 05/09/22 22:50 Reason For Visit: DVT LEFT LEG Discharge Date Discharge Date: 05/11/22 Discharge Diagnosis All Active Problems (Updated 05/11/22 @ 10:05 by Duarte Reynolds) Occlusion of femoral vein (Acute) Plan of Treatment: Continue with present treatment and follow up plan. Pt is to keep follow up appointment as instructed and take medications as ordered. Discharge Medications Discharge Medications: Sulfa (Sulfonamide Antibiotics) Allergy (Severe, Verified 05/09/22 20:29) CONFUSION CONTINUE taking the following medications aspirin 81 mg tablet,delayed release (Antonio Low Dose Aspirin) 81 mg PO QDAY 05/09/22 [History] atorvastatin 80 mg tablet 80 mg PO QHS 05/09/22 [History] clopidogrel 75 mg tablet (Plavix) 75 mg PO Q OTHER DAY 05/09/22 [History] coenzyme Q10 100 mg capsule (CoQ-10) 100 mg PO QDAY 05/09/22 [History] doxazosin 4 mg tablet 4 mg PO BID 05/09/22 [History] ezetimibe 10 mg tablet 10 mg PO QDAY 05/09/22 [History] metoprolol succinate 200 mg tablet,extended release 24 hr 200 mg PO QDAY 05/09/22 [History] montelukast 10 mg tablet 10 mg PO QDAY 05/09/22 [History] pantoprazole 40 mg tablet,delayed release 40 mg PO QDAY 05/09/22 [History] temazepam 15 mg capsule 15 mg PO QHS insomnia 05/09/22 [History] New Prescriptions oxycodone-acetaminophen 5 mg-325 mg tablet (Percocet) 1 tab PO Q6H PRN #20 tabs 05/11/22 [Rx] rivaroxaban 2.5 mg tablet (Xarelto) 2.5 mg PO BID #180 tabs 05/11/22 [Rx] Discharge Disposition Assessment: see hospital course above Discharge Plan Discharge Plan Hospital Course: 81 year old male who presented to my office with significant increased swelling of the upper left thigh after having had stenting of the left iliac vein by another provider several weeks prior. 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 Patient was admitted and placed on a Heparin drip. Previously he had been on Plavix and aspirin. The next morning he was taken to the operating Suite where venogram was carried out by of the left Popliteal vein showing no thrombosis of the femoral vein or the iliac vein however there was near total occlusion of the proximal common femoral vein, probably from dorie otomy at the time of the procedure to remove a foreign body. This was stented with overlap into the previously placed iliac vein stents of the left leg and the patient has done well. He will be discharged home on his usual medications plus Xarelto 2. 5 mg BID and daily aspirin 87. I will discontinue the Plavix. He will follow up with me in one week. Patient Disposition: 01 HOME, SELF-CARE Condition: Stable Health Concerns: Post Hospitalization: new medications and changes needed to prevent readmission or further decline. Pt educated and given instructions on all concerns. Care Plan Goals: Problem: Pain/Alteration in Comfort Goal: Improve/ Resolve Pain; Achieve Pain Tolerance Instructions: Take pain medications as prescribed. Contact your primary care provider if your pain is unrelieved or worsens. Follow up with primary care provider as directed. Plan of Treatment: Continue with present treatment and follow up plan. Pt is to keep follow up appointment as instructed and take medications as ordered. Assessment: see hospital course above Prescription drug monitoring program results: PDMP reviewed and no concerns identified Prescriptions: New Xarelto 2.5 mg Tablet 2.5 mg PO BID Qty: 180 0RF oxycodone-acetaminophen [Percocet] 5-325 mg Tablet 1 tab PO Q6H MDD 4 PRNQty: 20 0RF Continued atorvastatin 80 mg Tablet 80 mg PO QHS metoprolol succinate 200 mg Tablet Extended Release 24 Hr 200 mg PO QDAY clopidogrel [Plavix] 75 mg Tablet 75 mg PO Q OTHER DAY aspirin [Antonio Low Dose Aspirin] 81 mg Tablet,Delayed Release (Dr/Ec) 81 mg PO QDAY temazepam 15 mg Capsule 15 mg PO QHS pantoprazole 40 mg Tablet,Delayed Release (Dr/Ec) 40 mg PO QDAY doxazosin 4 mg Tablet 4 mg PO BID montelukast 10 mg Tablet 10 mg PO QDAY ezetimibe 10 mg Tablet 10 mg PO QDAY coenzyme Q10 [CoQ-10] 100 mg Capsule 100 mg PO QDAY Follow ups/Referrals Follow ups/Referrals: MILY LOCKWOOD [Primary Care Provider] - 1 WEEK Instructions Stand Alone Forms: Excuse From Work or School, Precautions for COVID, [facility], Patient Portal, Social Distancing
[2022-05-11 11:16] VITALS: BP 134/58
--- NOTE | 2022-05-17 10:44 | DR.UPDATE ---
H&P UPDATE Review Yes Patient was examined?: Yes
== END 2022-05-11 11:05 | disposition home or self-care (01) | DRG 253 ==
LOC: ICU 19:18
PROVIDERS: ADMIT Surgery; ATTEND Surgery
DX: Z20.822 Contact with and (suspected) exposure to COVID-19; I10 Essential (primary) hypertension; I82.412 Acute embolism and thrombosis of left femoral vein; K21.9 Gastro-esophageal reflux disease without esophagitis; K57.32 Diverticulitis of large intestine without perforation or abscess without bleeding; R60.0 Localized edema